=== PATIENT | female | born 1995 | race Caucasian/White ===

== ENCOUNTER 2018-05-08 20:01 | Emergency (ER) | payer OTHER ==
[2018-05-08 20:08] VITALS: BP 130/70; PULSE 76; TEMP 98.7; BMI 25.9
[2018-05-08] MEDS ORDERED: ACETAMINOPHEN 325 MG TABLET (FP) PO ONE (22:41)
[2018-05-08] MEDS ORDERED: ACETAMINOPHEN 325 MG TABLET (FP) ONE (22:51)
[2018-05-08 23:23] LABS: BASO % 0.6 % (0-2.0); EOS % 0.3 % (0-4.5); HEMATOCRIT 38.4 % (32.4-45.2); HEMOGLOBIN 13.1 GM/dL (10.7-15.3); LYMPH % 25.9 % (8-40); MCH 28.2 pg (25.7-33.7); MCHC 34.1 g/dl (32.0-36.0); MEAN CELL VOLUME 82.8 fl (80-96); MEAN PLT VOLUME 8.3 fl (7.5-11.1); MONO % 5.4 % (3.8-10.2); NEUT % 67.8 % (42.8-82.8); PLATELET COUNT 242 K/MM3 (134-434); RBC 4.64 M/mm3 (3.60-5.2); RDW 12.7 % (11.6-15.6); WHITE BLOOD COUNT 10.1 K/mm3 (4.0-10.0)
--- NOTE | 2018-05-09 00:37 | PDOC ---
History of Present Illness <Zuleika Summers Paulina - Last Filed: 05/09/18 00:37> - General History Source: Patient Exam Limitations: No Limitations - History of Present Illness Initial Comments: 05/09/18 01:41 This is a delayed note. The patient is a 23 year old female, with a significant past medical history of PCOS, who presents to the emergency department with 3 days of bright red blood per rectum and associated right lower quadrant pain. The patient states she had about 6 episodes of bright red blood after non-painful, small bowel movements. She states she noticed the bright red blood with wiping and in the toilet. She states she also has associated right lower quadrant pain that radiates to her right groin and right low back. She states her abdominal pain and back pain is exacerbated with sitting up straight. She describes the pain as sharp, achy, tightness. She also reports some momentary dizziness and headache earlier which has resolved now. She reports her LMP as October 2017. She states she has one menstrual period a year. She states she has Nexplanon implanted to her left arm. The patient denies chest pain, shortness of breath, headache and dizziness. The patient denies fever, chills, nausea, vomit, diarrhea and constipation.The patient denies dysuria, frequency, urgency and hematuria. Allergies: NKDA Past surgical history: none reported Social history: denies ETOH. reports 1-2 alcoholic beverages a month. <Wendie Nobles - Last Filed: 05/09/18 01:44> - General Chief Complaint: Rectal Bleed Stated Complaint: VAGINAL BLEEDING Time Seen by Provider: 05/08/18 21:41 Past History - Past Medical History COPD: No - Suicide/Smoking/Psychosocial Hx Smoking History: Never smoked <Zuleika Summers Paulina - Last Filed: 05/09/18 00:37> <Wendie Nobles - Last Filed: 05/09/18 01:44> - Past Medical History Allergies/Adverse Reactions: Allergies Allergy/AdvReac Type Severity Reaction Status Date / Time No Known Allergies Allergy Verified 05/08/18 20:08 Review of Systems - Review of Systems Able to Perform ROS?: Yes Comments:: 05/09/18 01:41 CONSTITUTIONAL: Absent: fever, no chills, no fatigue EYES: Absent: visual changes ENT: Absent: ear pain, no sore throat CARDIOVASCULAR: Absent: chest pain, no palpitations RESPIRATORY: Absent: cough, no SOB GI: (+) rectal bleeding with bowel movement. RLQ pain. Absent: abdominal pain, no nausea, no vomiting, no constipation, no diarrhea GENITOURINARY: Absent: dysuria, no frequency, no hematuria MUSCULOSKELETAL: (+) Right low back pain, Absent: no arthralgia, no myalgia SKIN: Absent: rash NEURO: Absent: headache <Wendie Nobles - Last Filed: 05/09/18 01:44> *Physical Exam - Vital Signs Last Vital Signs Temp Pulse Resp BP Pulse Ox 98.7 F 76 18 130/70 98 05/08/18 20:07 05/08/18 20:07 05/08/18 20:07 05/08/18 20:07 05/08/18 20:07 <Zuleika Summers - Last Filed: 05/09/18 00:37> - Vital Signs Last Vital Signs Temp Pulse Resp BP Pulse Ox 98.7 F 76 18 130/70 98 05/08/18 20:07 05/08/18 20:07 05/08/18 20:07 05/08/18 20:07 05/08/18 20:07 - Physical Exam Comments: 05/09/18 01:43 GENERAL: Well-appearing, well-nourished. No apparent distress. HEENT: Normocephalic, atraumatic. PERRL, EOM intact. CARDIOVASCULAR: Normal S1, S2. Regular rate and rhythm. PULMONARY: Clear to auscultation bilaterally. ABDOMEN: Soft, non-distended, non-tender. EXTREMITIES: Normal ROM in all four extremities. No gross deformities. SKIN: Warm, dry. No rash NEUROLOGICAL: No focal neurological deficits. RECTAL: performed with Wendie Nobles (medical physics professor) as mercury cell cleaner (+) skin tag. NO internal or external hemorrhoids. No blood in rectal vault. <Wendie Nobles - Last Filed: 05/09/18 01:44> ED Treatment Course - LABORATORY CBC & Chemistry Diagram: 05/08/18 23:17 - ADDITIONAL ORDERS Additional order review: Laboratory Results 05/08/18 23:35 Urine HCG, Qual Negative 05/08/18 23:17 RBC 4.64 MCV 82.8 MCHC 34.1 RDW 12.7 MPV 8.3 Neutrophils % 67.8 Lymphocytes % 25.9 Monocytes % 5.4 Eosinophils % 0.3 Basophils % 0.6 - RADIOLOGY Radiology Studies Ordered: Category Date Time Status TRANSVAGINAL ULTRASOUND US [US] Stat Ultrasound 05/08/18 23:30 Taken - Medications Given in the ED: ED Medications Discontinued Medications Generic Name Dose Route Start Last Admin Trade Name Freq PRN Reason Stop Dose Admin Acetaminophen 650 mg 05/08/18 22:41 05/08/18 22:53 Tylenol - PO 05/08/18 22:42 650 mg ONCE ONE Administration <Zuleika Summers - Last Filed: 05/09/18 00:37> - LABORATORY CBC & Chemistry Diagram: 05/08/18 23:17 - ADDITIONAL ORDERS Additional order review: Laboratory Results 05/08/18 23:35 Urine HCG, Qual Negative 05/08/18 23:17 RBC 4.64 MCV 82.8 MCHC 34.1 RDW 12.7 MPV 8.3 Neutrophils % 67.8 Lymphocytes % 25.9 Monocytes % 5.4 Eosinophils % 0.3 Basophils % 0.6 - Medications Given in the ED: ED Medications Discontinued Medications Generic Name Dose Route Start Last Admin Trade Name Freq PRN Reason Stop Dose Admin Acetaminophen 650 mg 05/08/18 22:41 05/08/18 22:53 Tylenol - PO 05/08/18 22:42 650 mg ONCE ONE Administration <Wendie Nobles - Last Filed: 05/09/18 01:44> *DC/Admit/Observation/Transfer <Zuleika Summers - Last Filed: 05/09/18 00:37> - Attestations Scribe Attestion: 05/09/18 01:44 Documentation prepared by Wendie Nobles, acting as medical driver for Zuleika Summers MD <Wendie Nobles - Last Filed: 05/09/18 01:44> Diagnosis at time of Disposition: Rectal bleed, Pelvic pain - Discharge Dispostion Disposition: HOME Condition at time of disposition: Stable - Referrals Referrals: Manpreet Ramos MD [Staff Physician] - Joey Chowdary MD [Staff Physician] - - Patient Instructions Printed Discharge Instructions: DI for Rectal Bleeding, DI for Pelvic Pain Additional Instructions: please followup with a auto customize painter if your symptoms persist
== END 2018-05-09 01:02 | disposition home or self-care (01) ==
LOC: JER 20:01
DX: R10.2 Pelvic and perineal pain (principal); K62.5 Hemorrhage of anus and rectum
CPT/HCPCS: 36415; 76830-TC; 84703; 85025; 99281-25